=== PATIENT | male | born 1990 | race African-American/Black ===

== ENCOUNTER 2023-01-01 20:47 | Emergency (ER) | payer MEDICAID, SELFPAY ==
--- NOTE | ~2023-01-01 | XR_ITS ---
EXAMINATION: XR HAND, LEFT CLINICAL INFORMATION: Crush injury pain swelling COMPARISON: None available. TECHNIQUE: PA, lateral, and oblique views of the left hand. FINDINGS: Third metacarpal: There is a mildly displaced and angulated mildly comminuted fracture of the proximal diametaphysis. The fracture does not appear to extend to the articular surface of the carpometacarpal joint. There is up to 2 mm of lateral displacement of the distal fragment with a minimal apex ulnar angulation and apex posterior angulation estimated at 19 degrees There is a nondisplaced fracture of the proximal diametaphysis of the fourth metacarpal with an oblique orientation. The remaining bones joints and soft tissues are unremarkable. XR/XR hand LT min 3V IMPRESSION: 1. Third metacarpal fracture. 2. Fourth metacarpal fracture.
[2023-01-01 20:58] VITALS: BP 144/88; PULSE 83; RESP 18; TEMP 36.8; O2SAT 98
--- NOTE | 2023-01-01 21:49 | ED_ITS ---
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 Related Data Allergies Allergy/AdvReac Type Severity Reaction Status Date / Time No Known Allergies Allergy Verified 01/01/23 21:01 Review of Systems Review of Systems: All other systems are reviewed and are negative Constitutional: Reports as per HPI and Reports no additional constitutional complaints Eyes: Reports as per HPI and Reports no additional eye complaints Reports system reviewed and no additional complaints, except as documented Cardiovascular: Reports as per HPI and Reports no additional cardiovascular complaints Respiratory: Reports as per HPI and Reports no additional respiratory complaints Gastrointestinal: Reports as per HPI and Reports no additional gastrointestinal complaints Genitourinary: Reports no additional female genitourinary complaints Musculoskeletal: Reports no additional musculoskeletal complaints Skin/Breast: Reports system reviewed and no additional complaints, except as docu Psychiatric: Reports no additional psychiatric complaints Endocrine: Reports no additional endocrine complaints Hematologic/Lymphatic: Reports no additional hematologic/lymphatic complaints Allergic/Immunologic: Reports no additional allergic/immunologic complaints Reports system reviewed and no additional complaints, except as documented and Reports Abnormal speech present Physical Exam Vital Signs: Vital Signs: Last Vital Signs Temp 98.2 F 01/01/23 20:58 Pulse 83 01/01/23 20:58 Resp 18 01/01/23 20:58 BP 144/88 H 01/01/23 20:58 Pulse Ox 98 01/01/23 20:58 O2 Del Method Room Air 01/01/23 20:58 BMI result Body Mass Index 30.0 Vital signs have been reviewed and appear to be correct. Blood pressure elevated. Heart rate normal. Respiratory rate normal. Temperature normal. Oxygen saturation normal. Appearance: Alert. Oriented X3. No acute distress. Head: Normal external exam. Normocephalic. Atraumatic. No Fernández signs noted. No raccoon eyes noted Eyes: PERRLA. EOMI. Conjunctiva and sclera normal. Eyelids normal. ENT: TM's Normal. Pharynx normal. Uvula midline. Moist mucous membranes. No trismus noted. No drooling noted. No muffled voice noted. Neck: Normal inspection. Neck supple. FROM. No adenopathy. Thyroid Normal. No meningeal signs. No neck mass noted. CVS: Normal heart rate and rhythm. Heart sound normal. No murmurs noted. Pulses normal throughout. Respiratory: No respiratory distress. Painless inspiration. Breath sounds normal. No wheezes/rales/rhonchi noted. Chest nontender. No accessory muscle usage noted or decreased air movement noted. Abdomen: Soft and nontender. Bowel sounds normal in all 4 quadrants. No distention noted. No organomegaly noted. No visible injury noted. Back: No CVA tenderness. Full range of motion noted. Skin: Skin warm and dry. Normal skin color. Normal skin turgor. No rashes/lesions/lacerations noted. Extremities: Left hand: Neurovascularly intact, tenderness at the base of 3rd and 4th metacarpal bone, no deformity. Cranial nerve exam: II-XII are grossly intact No motor deficit. No sensory deficit. Reflexes normal. Course Reevaluation(s) Reevaluation #1: left metacarpal fracture 3rd and 4th happened 2 days before presentation, will immobilize with a volar splint and follow-up with Orthopedic. Time: 21:52 Medical Decision Making Differential Diagnosis Differential Diagnoses: The differential diagnosis associated with the presentation includes ( Left hand contusion, hand fracture, neurovascular impairment.) Admission/Observation Consideration of admission/observation: Escalation of care including admission/observation considered Independent Interpretation I performed an independent interpretation of an: Plain X-Ray ( Left hand:1. Third metacarpal fracture. 2. Fourth metacarpal fracture. ) Discharge Plan Discharge Clinical Impression: Fx metacarpal Qualifiers: Encounter type: initial encounter Metacarpal bone: fourth Fracture type: closed Fracture alignment: displaced Laterality: left Instructions: Hand Fracture (ED) Referrals: Genesis Childs MD [Physician] - Stand Alone Forms: Work/School Release
== END 2023-01-01 22:45 | disposition home or self-care (01) ==
PROVIDERS: Emergency Provider Emergency Medicine
DX: S62.305A Unspecified fracture of fourth metacarpal bone, left hand, initial encounter for closed fracture (principal); W20.8XXA Other cause of strike by thrown, projected or falling object, initial encounter; Y93.H3 Activity, building and construction; Y92.9 Unspecified place or not applicable; Y99.9 Unspecified external cause status; M79.642 Pain in left hand; M79.89 Other specified soft tissue disorders
CPT/HCPCS: 73130; 99283

== ENCOUNTER 2023-01-06 08:36 | Outpatient (REF) | payer MEDICAID, SELFPAY ==
--- NOTE | ~2023-01-06 | XR_ITS ---
EXAMINATION: XR HAND, LEFT CLINICAL INFORMATION: Pain. COMPARISON: Radiographs dated 01/01/2023. TECHNIQUE: PA, lateral, and oblique views of the left hand. FINDINGS: Bony alignment and mineralization are normal. There is a mildly displaced oblique fracture of the third metacarpal metadiaphysis, and a nondisplaced oblique hairline fracture is seen of the fourth metacarpal metadiaphysis. The former fracture shows mild periosteal callus formation. 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 No focal erosion is seen. There is no focal soft tissue swelling, gas or foreign body. XR/XR hand LT min 3V IMPRESSION: 1. There is stable alignment of oblique fractures of the proximal metadiaphyses of the third and fourth metacarpal bones. Mild callus formation is seen of the third metacarpal fracture site. 2. There are degenerative changes of the second and third distal interphalangeal joints.
== END 2023-01-06 08:37 | disposition home or self-care (01) ==
LOC: HO.HOSX 08:36
PROVIDERS: Visit Provider Physician Assistant
DX: S62.315A Displaced fracture of base of fourth metacarpal bone, left hand, initial encounter for closed fracture (principal)
CPT/HCPCS: 26600; 73130; 99212

== ENCOUNTER 2023-01-06 12:45 | Outpatient (AMB) | payer MEDICAID, SELFPAY ==
--- NOTE | 2023-01-06 13:00 | A.OFFVIS_ITS ---
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 Patient reports while at work a heavy door fell on his left hand. He presented to [facility] ED 2 days ago later due to pain and swelling. He was placed in a splint and referred to orthopedics. Currently intermittent pain at the top of his hand. He has numbness and tingling at the tip of his 3rd, 4th and 5th digit. Finds relief with ibuprofen. Allergies No Known Allergies Allergy (Verified 01/06/23 13:13) HPI fc- left metacarpal fracture 3rd and 4th HPI Details 32-year-old male who presents to the off [facility] today for an ER follow-up of left 3rd and 4th metacarpal injury s/p a heavy door falling on his left hand, 12/30/22. He was seen at ED 2 days later due to pain and swelling where he was placed in a splint and referred to our office. He currently states he has intermittent pain at the top of his hand. He also c/o numbness and tingling at the tip of his 3rd, 4th and 5th metacarpal. He finds relief with ibuprofen. 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 He does have diffused swelling over the dorsum of hand with tenderness along the base of ring and middle finger. He can make a full fist and fully extend the digits. NVI. Office Procedures Casting/Splints 88868-Hnqu/Wrist Cast Application Procedure code (CPT) selection complete Fracture Care Fracture Billing Code: Fracture Billing Code Results Reviewed Results Reviewed: Xrays were obtained in the office today and personally reviewed by me of the left hand show fracture along the base of the ring and middle finger. No evide nce of shortening or angulation. Assessment & Plan Assessment & Plan (1) Fx metacarpal: Code(s): S62.309A - Unspecified fracture of unspecified metacarpal bone, initial encounter for closed fracture Qualifiers: Encounter type: initial encounter Fracture alignment: displaced Fracture type: closed Laterality: left Metacarpal bone: fourth Metacarpal location: base Qualified Code(s): S62.315A - Displaced fracture of base of fourth metacarpal bone, left hand, initial encounter for closed fracture (2) Mult fx of metacarpal bones, closed: Code(s): S62.309A - Unspecified fracture of unspecified metacarpal bone, initial encounter for closed fracture Qualifiers: Encounter type: initial encounter Qualified Code(s): S62.309A - Unspecified fracture of unspecified metacarpal bone, initial encounter for closed fracture Plan He was Placed in a short arm cast and he will sarbjit tape the ring and middle finger together. I strongly encouraged him to avoid any type of lifting, pushing, pulling or carrying greater than a cellphone to prevent further displacement of the fracture. I would like to see him back in 3-4 weeks with cast off and new x-rays, sooner if needed. Orders: Orders XR hip LT min 2V 01/06/23 M25.552 - Pain in left hip XR hand LT min 3V 01/06/23 M79.642 - Pain in left hand Patient Instructions: Scribed for Negrita Najera PA-C, by Garrett Vargas medical doctor, on 01/06/2023 at 1:00 PM EST. I, Negrita Najera PA-C, have personally reviewed and agree with the information entered by the scribe. Coding Level of Care Code New Pt Level 3 (83801) Diagnoses Closed displaced fracture of base of fourth metacarpal bone of left hand, initial encounter S62.315A Encounter type: initial encounter Fracture alignment: displaced Fracture type: closed Laterality: left Metacarpal bone: fourth Metacarpal location: base Closed fracture of multiple metacarpal bones, initial encounter S62.309A Encounter type: initial encounter CPT Codes Casting - CPT: 91905-Qqgk/Wrist Cast Application ([id number]) Fracture Care - Fracture Billing Code: Fracture Billing Code ([id number])
== END 2023-01-06 14:40 | disposition home or self-care (01) ==
PROVIDERS: Visit Provider Physician Assistant
DX: S62.305A Unspecified fracture of fourth metacarpal bone, left hand, initial encounter for closed fracture (principal); S62.303A Unspecified fracture of third metacarpal bone, left hand, initial encounter for closed fracture; W20.8XXA Other cause of strike by thrown, projected or falling object, initial encounter; Z04.2 Encounter for examination and observation following work accident
CPT/HCPCS: 26600; 99203

== ENCOUNTER 2023-02-01 11:11 | Outpatient (REF) | payer MEDICAID, SELFPAY ==
--- NOTE | ~2023-02-01 | XR_ITS ---
EXAMINATION: XR HAND, LEFT CLINICAL INFORMATION: Pain. COMPARISON: Prior radiographs dated 01/06/2023 and 12/30/2022. TECHNIQUE: PA, lateral, and oblique views of the left hand. FINDINGS: Bony alignment and mineralization are normal. There is stable alignment of mildly displaced oblique fractures of the proximal metadiaphyses of the third and fourth metacarpal bones, with now abundant callus formation at the fracture sites. No dislocation is seen. There is moderate osteoarthritic change of the third and fourth distal interphalangeal joints. The proximal and distal carpal rows are intact. No focal soft tissue swelling, gas or foreign body is seen. XR/XR hand LT min 3V IMPRESSION: 1. Healing fractures are noted of the proximal metadiaphyses of the left third and fourth metacarpal bones, with stable alignment and abundant, increased callus formation. 2. There is moderate osteoarthritic change of the left third and fourth distal interphalangeal joints.
== END 2023-02-01 11:12 | disposition home or self-care (01) ==
LOC: HO.HOSX 11:11
PROVIDERS: Visit Provider Physician Assistant
DX: S62.315D Displaced fracture of base of fourth metacarpal bone, left hand, subsequent encounter for fracture with routine healing (principal); S62.303D Unspecified fracture of third metacarpal bone, left hand, subsequent encounter for fracture with routine healing; M79.642 Pain in left hand; X58.XXXD Exposure to other specified factors, subsequent encounter
CPT/HCPCS: 73130; 99212

== ENCOUNTER 2023-02-01 12:33 | Outpatient (AMB) | payer MEDICAID, SELFPAY ==
--- NOTE | 2023-02-01 12:42 | MHC.OFFVIS ---
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 Cast off and xrays updated. Patient reports he is doing well, he complains of mild soreness. Allergies No Known Allergies Allergy (Verified 02/01/23 12:44) HPI ov-left hand fx cast off w xrays HPI Details 32-year-old left hand dominant male who returns to the office today for a follow-up of left 3rd and 4th metacarpal fracture, 12/30/22. He states he has mild soreness in his hand but is doing well otherwise. He has no concerns today. 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 Improved swelling over the dorsum of hand with no tenderness along the base of ring and middle finger. He can make a full fist and fully extend the digits. NVI. Results Reviewed Results Reviewed: X-rays of the left hand obtained in the office today show significant callous formation at the healing of the fracture site however the fracture line is slightly visible. Assessment & Plan Assessment & Plan (1) Fx metacarpal: Code(s): S62.309A - Unspecified fracture of unspecified metacarpal bone, initial encounter for closed fracture Qualifiers: Encounter type: subsequent encounter Fracture alignment: displaced Fracture type: closed Laterality: left Metacarpal bone: fourth Metacarpal location: base Fracture healing: with routine healing Qualified Code(s): S62.315D - Displaced fracture of base of fourth metacarpal bone, left hand, subsequent encounter for fracture with routine healing (2) Mult fx of metacarpal bones, closed: Code(s): S62.309A - Unspecified fracture of unspecified metacarpal bone, initial encounter for closed fracture Qualifiers: Encounter type: subsequent encounter Fracture healing: with routine healing Qualified Code(s): S62.309D - Unspecified fracture of unspecified metacarpal bone, subsequent encounter for fracture with routine healing Plan I did explain to him that while the fracture is healing and may appear stable there could be area of weakness. I do encourage he avoid any type of impact activities for the next 4-6 weeks to ensure good strength in that fracture. If symptoms persist or worsens, patient will contact the office, otherwise follow-up as needed. Orders: Orders XR hand LT min 3V Today M79.642 - Pain in left hand Patient Instructions: Scribed for Negrita Najera PA-C, by Garrett Vargas medical center manager, on 02/01/2023 at 12:30 PM EST. I, Negrita Najera PA-C, have personally reviewed and agree with the information entered by the scribe. Coding Level of Care Code Global (60804) Diagnoses Closed displaced fracture of base of fourth metacarpal bone of left hand with routine healing, subsequent encounter S62.315D Encounter type: subsequent encounter Fracture alignment: displaced Fracture type: closed Laterality: left Metacarpal bone: fourth Metacarpal location: base Fracture healing: with routine healing Closed fracture of multiple metacarpal bones with routine healing, subsequent encounter S62.309D Encounter type: subsequent encounter Fracture healing: with routine healing
== END 2023-02-01 13:09 | disposition home or self-care (01) ==
PROVIDERS: Visit Provider Physician Assistant
DX: S62.315D Displaced fracture of base of fourth metacarpal bone, left hand, subsequent encounter for fracture with routine healing (principal); S62.309D Unspecified fracture of unspecified metacarpal bone, subsequent encounter for fracture with routine healing
CPT/HCPCS: 99024